=== PATIENT | male | born 2000 | race Caucasian/White ===

== ENCOUNTER 2020-08-09 15:12 | Emergency (ER) | payer SELFPAY ==
[~2020-08-09] VITALS: Ht 185.4 cm; Wt 70.7 kg
[2020-08-09] MEDS ORDERED: LIDOCAINE HCL/PF 1% 10 MG/ML 5ML VIAL IJ ONE (15:45)
[2020-08-09] MEDS ORDERED: TETANUS, DIPHTHERIA, PERTUSSIS VAC/PF 0.5ML (>7YR OLD) IM ONE (15:45)
[2020-08-09] MEDS ORDERED: IBUPROFEN 600MG TABLET PO ONE (15:45)
[2020-08-09 15:55] VITALS: BP 102/75
== END 2020-08-09 16:57 | disposition home or self-care (01) ==
LOC: ER 15:12
DX: S01.01XA Laceration without foreign body of scalp, initial encounter (principal); V17.0XXA Pedal cycle driver injured in collision with fixed or stationary object in nontraffic accident, initial encounter; Y93.55 Activity, bike riding; R03.0 Elevated blood-pressure reading, without diagnosis of hypertension; Y92.89 Other specified places as the place of occurrence of the external cause; Z23 Encounter for immunization
CPT/HCPCS: 12002; 90471; 90715; 99283; J3490

== ENCOUNTER 2020-08-13 10:40 | Emergency (ER) | payer SELFPAY ==
[~2020-08-13] VITALS: Ht 185.4 cm; Wt 71.0 kg
[2020-08-13 10:44] VITALS: BP 129/53
== END 2020-08-13 11:10 | disposition home or self-care (01) ==
LOC: ER 10:40
DX: Z48.00 Encounter for change or removal of nonsurgical wound dressing (principal); R03.0 Elevated blood-pressure reading, without diagnosis of hypertension
CPT/HCPCS: 99281

== ENCOUNTER 2020-08-24 13:07 | Emergency (ER) | payer SELFPAY ==
[~2020-08-24] VITALS: Ht 185.4 cm; Wt 72.0 kg
[2020-08-24 13:40] VITALS: BP 119/61
== END 2020-08-24 13:50 | disposition home or self-care (01) ==
LOC: ER 13:38
DX: S01.81XD Laceration without foreign body of other part of head, subsequent encounter (principal); X58.XXXD Exposure to other specified factors, subsequent encounter
CPT/HCPCS: 99281